=== PATIENT | female | born 1960 | race Caucasian/White ===

== ENCOUNTER → 2017-01-23 | Outpatient (CLI) | payer OTHER | LOC: CIMAGING 10:06 | PROVIDERS: ATTEND Family Medicine | DX: R22.2 Localized swelling, mass and lump, trunk (principal) | CPT/HCPCS: 71020-PO ==

== ENCOUNTER → 2018-04-18 | Outpatient (CLI) | payer BC | LOC: FCPNEURO 21:00 | PROVIDERS: ATTEND Student in an Organized Health Care Education/Training Program | DX: G47.33 Obstructive sleep apnea (adult) (pediatric) (principal) ==

== ENCOUNTER 2018-06-28 13:57 | Inpatient (IN) | payer BC ==
[2018-06-28] MEDS ORDERED: NS 500 ML IV ONE (14:13)
--- NOTE | 2018-06-28 14:18 | EDPHY ---
H & P Time Seen by Provider: 06/28/18 14:14 HPI/ROS: CHIEF COMPLAINT: Hypoxia Limitations: post-operative sedation HISTORY OF PRESENT ILLNESS: 57-year-old female presents after left tib-fib surgery with hypoxia. Surgical repair of left tib-fib fracture this afternoon. Immediately after the operation was completed and the tourniquet was let down , she became acutely hypoxic at the surgery center, with an O2 sat in the 80s. Hypoxia has persisted in the postoperative period. EMS called for transport. Pt still groggy from surgery and only c/o dizziness. She denies shortness of breath or chest pain. No prior history of VTE or prior cardiopulmonary disease. REVIEW OF SYSTEMS: complete 10 point ROS reviewed and is negative except for the noted elements in the HPI (completed later in ED course) Source: Patient, Family - Social History Alcohol Use: Sober Drug Use: None Additional Social History: - Physical Exam Exam: General Appearance: drowsy, pleasant Eyes: Pupils equal and round, no conjunctival pallor or injection, horizontal nystagmus with rightward gaze ENT, Mouth: Mucous membranes moist Neck: Normal inspection Respiratory: normal RR, lungs are clear to auscultation Cardiovascular: Regular rate and rhythm Gastrointestinal: Abdomen is soft and nontender Neurological: drowsy, oriented x 3, nonfocal exam Skin: Warm and dry Extremities: Left lower extremity in a splint Psychiatric: Flat affect Constitutional: Initial Vital Signs O2 Sat (%) 95 06/28/18 14:13 O2 Delivery Mode Room Air O2 (L/minute) 4 Allergies/Adverse Reactions: Sulfa (Sulfonamide Antibiotics) Allergy (Verified 06/28/18 14:17) Home Medications: Medication Instructions Recorded Zolpidem Tartrate [Ambien] 10 mg PO HS PRN 06/28/18 morphINE IR [morphINE IR 15 mg (*)] 7.5 - 15 mg PO BID PRN 06/28/18 Apixaban [Eliquis] 10 mg PO BID #72 tab 06/29/18 Medical Decision Making - Diagnostics EKG Interpretation: EKG interpreted by me reveals NSR, rate 84, PVC, possible LAE, no ST/T changes. Interpretation: borderline EKG Imaging Results: CTA chest read by the radiologist: acute bilateral PE, see full report Imaging: Discussed imaging studies w/ patient assessment coordinator Radiologist ED Course/Re-evaluation: This patient presents with hypoxia immediately after left tib-fib repair. Concerning for thromboembolism. stat EKG reveals no ischemic changes and no dysrhythmia. CTA chest ordered to r/o PE and reveals acute bilateral segmental/ lobar PE's. Options d/w with pt and , advise Heparin IV. Pt is alert and appears to be a competent decision-maker. Given urgent nature of need for anticoagulation, also involved in decision-making for pt. Pt and clearly understand the risks and benefits of heparin in the immediate post-operative period (including hemorrhage in the surgical area, compartment syndrome, limb compromise, other hemorrhage) and wish to proceed. Heparin per weight based protocol initiated. d/w Dr. Bryan, who saw pt in ED. Consulted the hospitalist service for admission. Pt stable throughout her ED stay, gradually more alert and back to baseline mental status. Toes pink, good cap refill throughout. Differential Diagnosis: includes though not limited to PTX, ACS, pulm edema, pneumonia, oversedation - Data Points Laboratory Results: Laboratory Results 06/28/18 14:42 06/28/18 14:42 Medications Given: Acetaminophen (Tylenol) 1,000 mg PO Q8H [facility] Stop: 12/25/18 17:14 Last Admin: 06/29/18 11:31 Dose: 1,000 mg Hydrocodone Bitart/Acetaminophen ([place] 5/325) 1 - 2 tab PO Q3HRS PRN PRN Reason: Pain, Moderate Able to Take PO Stop: 07/09/18 08:38 Last Admin: 06/29/18 15:54 Dose: 1 tab Apixaban (Eliquis) 10 mg PO BID [facility] Stop: 12/26/18 09:29 Last Admin: 06/29/18 09:48 Dose: 10 mg Oxycodone HCl (Oxycodone Ir) 5 - 10 mg PO Q3HRS PRN PRN Reason: Pain, Severe Able to Take PO Stop: 07/09/18 08:38 Last Admin: 06/29/18 16:51 Dose: 10 mg Discontinued Medications Acetaminophen (Tylenol) 1,000 mg PO Q8H [facility] Stop: 12/25/18 17:14 Last Admin: 06/28/18 19:31 Dose: Not Given Heparin Sodium (Porcine) (Heparin Injection) 0 unit IVP EDNOW ONE Stop: 06/28/18 15:44 Last Admin: 06/28/18 16:38 Dose: 6,800 units Sodium Chloride (Ns) 500 mls @ 1,000 mls/hr IV EDNOW ONE PRN Reason: Protocol Stop: 06/28/18 14:42 Last Admin: 06/28/18 14:21 Dose: 500 mls Heparin Sodium (Porcine) (Heparin 50 Units/Ml (Premix)) 500 mls @ 0 mls/hr IV EDNOW ONE; Per Protocol PRN Reason: Protocol Stop: 06/28/18 15:44 Last Admin: 06/28/18 19:30 Dose: Not Given Heparin Sodium (Porcine) (Heparin 50 Units/Ml (Premix)) 500 mls @ 0 mls/hr IV CONT [facility]; Per Protocol PRN Reason: Protocol Stop: 12/25/18 15:59 Last Admin: 06/29/18 08:41 Dose: 500 mls Oxycodone HCl (Oxycodone Ir) 5 - 10 mg PO Q3HRS PRN PRN Reason: Pain, Severe Able to Take PO Stop: 07/08/18 17:15 Last Admin: 06/29/18 06:05 Dose: 5 mg Point of Care Test Results: Chemistry 06/28/18 06/28/18 14:49 14:48 POC Sodium 142 mEq/L mEq/L (135-145) POC Potassium 4.0 mEq/L mEq/L (3.3-5.0) POC Chloride 106 mEq/L mEq/L (97-110) POC Total CO2 23 mEq/L mEq/L (22-31) POC BUN 12 mg/dL mg/dL (7-23) POC Creatinine 0.7 mg/dL mg/dL (0.6-1.0) POC Glucose 125 mg/dL H mg/dL (70-100) POC Troponin I 0.00 ng/mL ng/mL (0.00-0.08) ISTAT H&H 06/28/18 14:49 POC Hgb 14.6 gm/dL gm/dL (12.6-16.3) POC Hct 43 % % (38-47) Departure - Departure Disposition: [facility] Inpatient Acute Clinical Impression: Pulmonary emboli Qualifiers: Pulmonary embolism type: unspecified Chronicity: acute Acute cor pulmonale presence: without acute cor pulmonale Qualified Code(s): I26.99 - Other pulmonary embolism without acute cor pulmonale Condition: Good
[2018-06-28] MEDS ORDERED: IOHEXOL 350mgI/ML (OMNIPAQUE) 150 ML BTL IV ONE (14:47)
[2018-06-28 14:53] LABS: PLATELET COUNT 249 10^3/uL (150-400)
[2018-06-28] MEDS ORDERED: HEPARIN/DEXTROSE 500 ML IV ONE (15:43)
[2018-06-28] MEDS ORDERED: HEPARIN 10,000 UNIT/10 ML MDV (1,000 UNIT/ML) IVP ONE (15:43)
[2018-06-28] MEDS ORDERED: ONDANSETRON DISINTEGRATING 4 MG TAB PO PRN (15:54)
[2018-06-28] MEDS ORDERED: ONDANSETRON 4 MG/2 ML VIAL IVP PRN (15:54)
[2018-06-28] MEDS ORDERED: ACETAMINOPHEN 325 MG TAB PO PRN (15:54)
[2018-06-28] MEDS ORDERED: HEPARIN 10,000 UNIT/10 ML MDV (1,000 UNIT/ML) IVP PRN (15:56)
[2018-06-28 16:16] LABS: INR 0.99 (0.83-1.16); PROTIME(PATIENT) 13.3 SEC (12.0-15.0)
[2018-06-28] MEDS: HEPARIN/DEXTROSE 500 ML IV SCH (16:39)
--- NOTE | 2018-06-28 16:44 | PDGENHP ---
History and Physical - Chief Complaint Hypoxia - History of Present Illness HPI: This is a 57 y/o female with history of depression, anxiety, and PTSD presenting to the emergency room s/p left tib-fib surgery by Dr. Bonilla Bryan d /t hypoxia. Report was gathered by discussing case with ER admitting physician Dr. Tabitha Gudino as pt recalls waking up in an ambulance today. Today and after 30 minutes of having her left tib-fib repair, the tourniquet was removed and immediately she became hypoxic at the surgery center with oxygen saturation in the 80s. The pt reports last , she attended the [email or web address] and afterwards, she slipped on ice and broke her tib-fib. It was a closed fracture. She went to [facility] where she was splinted and given Morphine. She was sedentary since then and used crutches to get around. She has never had blood clots before, no heart issues. Endorses lightheadedness while upright and reports "feeling off," and more fatigued than usual starting yesterday sometime. Denies chest pains, palpitations, nausea, vomiting, fevers , chills. Chest CTA reveal bilateral pulmonary embolisms. She is being admitting for further treatment and monitoring. Past Medical History: Depression, anxiety, PTSD Past Surgical History: Tonsillectomy Social: Lives in [place]. Has a partner named Ciro. Retired. Denies tobacco or illicit drug use. Occasionally drinks alcohol ~1 wine/week. History Information - Allergies/Home Medication List Allergies/Adverse Reactions: Sulfa (Sulfonamide Antibiotics) Allergy (Verified 06/28/18 14:17) Home Medications: Zolpidem Tartrate [Ambien] 10 mg PO HS PRN 06/28/18 [Last Taken Unknown] morphINE IR [morphINE IR 15 mg (*)] 7.5 - 15 mg PO BID PRN 06/28/18 [Last Taken Unknown] I have personally reviewed and updated: family history, medical history, social history, surgical history Past Medical History: See HPI list - Surgical History Additional surgical history: See HPI list - Family History Positive for: diabetes type II, CAD, hypertension - Social History Smoking Status: Never smoked Alcohol Use: Occasionally Drug Use: None Review of Systems Review of Systems: ROS: 10pt was reviewed & negative except for what was stated in HPI & below Constitutional: Reports: malaise, recent injury EENMT: Reports: no symptoms Cardiac: Reports: lightheadedness Gastrointestinal: Reports: no symptoms Genitourinary: Reports: no symptoms Muscolosketal: Reports: no symptoms Skin: Reports: no symptoms Neurological: Reports: no symptoms Hematologic/Lymphatic: Reports: no symptoms Immunologic/Allergy: Reports: other (See allergy list) Physical Exam Physical Exam: Lab data and imaging were reviewed. Case discussed with admitting physician, Dr. Emery Bahena BNP: 66 Trop: 0.00 Chest CTA: bilateral lobar to segmental acute pulmonary emboli. Possible strands of embolus within the main right and left pulmonary arteries. The main pulmonary artery is slightly dilated and mild dilatation of the right ventricle. Left lower lobe nodule measuring 0.2 cm. EKG: SR, suspect left ventricle enlargement Temp Pulse Resp BP Pulse Ox 37 C 99 20 165/105 H 91 L 06/28/18 16:00 06/28/18 16:00 06/28/18 16:00 06/28/18 16:00 06/28/18 16:00 Constitutional: no apparent distress, appears nourished, obese Eyes: PERRL, anicteric sclera, EOMI Ears, Nose, Mouth, Throat: moist mucous membranes, hearing normal, ears appear normal, no oral mucosal ulcers Cardiovascular: regular rate and rhythym, no murmur, rub, or gallop, tachycardia , edema Peripheral Pulses: 0: dorsalis-pedis (L) (Deferred d/t surgical splint KERWIN. Popliteal pulse 2+), 2+: dorsalis-pedis (R) (Radial 2+) Respiratory: reduced air movement (Throughout lung arias) Gastrointestinal: normoactive bowel sounds, soft, non-tender abdomen, no palpable masses Genitourinary: no bladder fullness, no bladder tenderness Skin: warm, normal color, no rashes or abrasions, no fluctuance, no induration, No mottled Musculoskeletal: full muscle strength, no muscle tenderness, normal joint ROM, no joint effusions Neurologic: AAOx3, sensation intact bilaterally, CN II-XII Intact Psychiatric: not encephalopathic, thought process linear, flat affect Lymph, Heme, Immunologic: no cervical LAD, no supraclavicular LAD Lab Data & Imaging Review 06/28/18 14:42 06/28/18 14:42 WBC 13.16 10^3/uL (3.80-9.50) H 06/28/18 14:42 RBC 4.71 10^6/uL (4.18-5.33) 06/28/18 14:42 Hgb 14.1 g/dL (12.6-16.3) 06/28/18 14:42 POC Hgb 14.6 gm/dL (12.6-16.3) 06/28/18 14:49 Hct 43.2 % (38.0-47.0) 06/28/18 14:42 POC Hct 43 % (38-47) 06/28/18 14:49 MCV 91.7 fL (81.5-99.8) 06/28/18 14:42 MCH 29.9 pg (27.9-34.1) 06/28/18 14:42 MCHC 32.6 g/dL (32.4-36.7) 06/28/18 14:42 RDW 13.2 % (11.5-15.2) 06/28/18 14:42 Plt Count 249 10^3/uL (150-400) 06/28/18 14:42 MPV 9.6 fL (8.7-11.7) 06/28/18 14:42 Neut % (Auto) 91.1 % (39.3-74.2) H 06/28/18 14:42 Lymph % (Auto) 5.7 % (15.0-45.0) L 06/28/18 14:42 Daniels % (Auto) 2.1 % (4.5-13.0) L 06/28/18 14:42 Eos % (Auto) 0.3 % (0.6-7.6) L 06/28/18 14:42 Baso % (Auto) 0.3 % (0.3-1.7) 06/28/18 14:42 Nucleat RBC Rel Count 0.0 % (0.0-0.2) 06/28/18 14:42 Absolute Neuts (auto) 11.98 10^3/uL (1.70-6.50) H 06/28/18 14:42 Absolute Lymphs (auto) 0.75 10^3/uL (1.00-3.00) L 06/28/18 14:42 Absolute Monos (auto) 0.28 10^3/uL (0.30-0.80) L 06/28/18 14:42 Absolute Eos (auto) 0.04 10^3/uL (0.03-0.40) 06/28/18 14:42 Absolute Basos (auto) 0.04 10^3/uL (0.02-0.10) 06/28/18 14:42 Absolute Nucleated RBC 0.00 10^3/uL (0-0.01) 06/28/18 14:42 Immature Gran % 0.5 % (0.0-1.1) 06/28/18 14:42 Immature Gran # 0.07 10^3/uL (0.00-0.10) 06/28/18 14:42 PT 13.3 SEC (12.0-15.0) 06/28/18 15:57 INR 0.99 (0.83-1.16) 06/28/18 15:57 APTT 27.5 SEC (23.0-38.0) 06/28/18 15:57 POC Sodium 142 mEq/L (135-145) 06/28/18 14:49 Sodium 136 mEq/L (135-145) 06/28/18 14:42 POC Potassium 4.0 mEq/L (3.3-5.0) 06/28/18 14:49 Potassium 4.3 mEq/L (3.5-5.2) 06/28/18 14:42 POC Chloride 106 mEq/L (97-110) 06/28/18 14:49 Chloride 108 mEq/L (97-110) 06/28/18 14:42 Carbon Dioxide 22 mEq/l (22-31) 06/28/18 14:42 POC Total CO2 23 mEq/L (22-31) 06/28/18 14:49 Anion Gap 6 mEq/L (6-14) 06/28/18 14:42 POC BUN 12 mg/dL (7-23) 06/28/18 14:49 BUN 14 mg/dL (7-23) 06/28/18 14:42 Creatinine 0.7 mg/dL (0.6-1.0) 06/28/18 14:42 POC Creatinine 0.7 mg/dL (0.6-1.0) 06/28/18 14:49 Estimated GFR > 60 06/28/18 14:42 Glucose 120 mg/dL (70-100) H 06/28/18 14:42 POC Glucose 125 mg/dL (70-100) H 06/28/18 14:49 Calcium 8.7 mg/dL (8.5-10.4) 06/28/18 14:42 POC Troponin I 0.00 ng/mL (0.00-0.08) 06/28/18 14:48 NT-Pro-B Natriuret Pep 66 pg/mL (0-125) 06/28/18 14:42 Assessment & Plan Plan: This is a 57 y/o female with history of anxiety, PTSD, and depression s/p left tib-fib repair by Dr. Bonilla Bryan who arrived to the ED shortly after completion of her surgery d/t hypoxia sating in the 80s. Upon imaging, she has bilateral PEs. #Bilateral PEs: Symptomatic with tachy, lightheadedness and hypoxic on RA. Confirmed with chest CTA. -Dr. Tabitha Gudino has a call out to Dr. Bryan to inform him of the pt's situation. Risks vs benefits were weighed heavily considering she is s/p surgery; initiating heparin most likely will cause swelling and hematoma to surgical leg however if heparin is not administered, she is at risk for more blood clots and/or respiratory decline. -Heparin bolus + drip initiated in ED; will continue heparin drip on floor -Cycle H&H Q8H x 4 to evaluate LLE possible bleed -Cont tele/pulse ox monitoring -ECHO complete w/bubble pending to evaluate possible right heart strain; BNP 66. Trop negative 0.00 -Will not perform BLE doppler US; most likely origin is from acute LLE injury onset last + immobility since that time -Transition heparin drip off tomorrow morning and begin AC -Noted left lower lobe nodule. She will need to f/u outpatient in 12 months for repeat imaging. #LLE POD #0 -Pain management PO/IVP PRN -Elevate -NWB LLE unless directed otherwise by Dr. Bryan -PT/OT #Obesity #Insomnia: on Ambien @ HS Diet: Regular Code: Full VTE ppx: Heparin drip Dispo: Admit to obs
[2018-06-28] MEDS ORDERED: HYDROmorphONE/DILAUDID 1 MG/ML INJ IVP PRN (17:16)
[2018-06-28] MEDS ORDERED: ACETAMINOPHEN 325 MG TAB PO SCH (17:16)
[2018-06-28] MEDS ORDERED: ZOLPIDEM TARTRATE 5 MG TAB PO PRN (17:17)
--- NOTE | 2018-06-28 18:32 | HOSPPROG ---
Hospitalist Progress Note Assessment/Plan: I have personally seen and evaluated Ivory Khanna. I agree with the assessment and plan as outlined by Jackeline ALEGRIA, in a separate note. Objective: Vital Signs Temp Pulse Resp BP Pulse Ox 36.7 C 93 16 157/99 H 90 L 06/28/18 17:39 06/28/18 17:39 06/28/18 17:39 06/28/18 17:39 06/28/18 17:39 06/27/18 06/28/18 06/29/18 05:59 05:59 05:59 Output Total 900 Balance -900 PT 13.3 SEC (12.0-15.0) 06/28/18 15:57 INR 0.99 (0.83-1.16) 06/28/18 15:57 ICD10 Worksheet Patient Problems: Problems Problem Status Onset Pulmonary emboli Acute - ICD10 Problem Qualifiers (1) Pulmonary emboli Qualifiers: Pulmonary embolism type: unspecified Chronicity: acute
[2018-06-28] MEDS: ACETAMINOPHEN 500 MG TAB PO SCH (18:59)
--- NOTE | 2018-06-28 19:48 | CPEKG ---
Test Reason : OPEN Blood Pressure : / mmHG Vent. Rate : 083 BPM Atrial Rate : 084 BPM P-R Int : 162 ms QRS Dur : 093 ms QT Int : 385 ms P-R-T Axes : 066 056 023 degrees QTc Int : 453 ms Sinus rhythm Ventricular premature complex Probable left atrial enlargement Confirmed by Janeth Gudino ([id number]) on 06/28/2018 7:48:17 PM Referred By: Janeth Gudino Confirmed By:Janeth Gudino
[2018-06-29] MEDS: oxyCODONE IR 5 MG TAB PO PRN ×6 (04:27→23:38)
[2018-06-29] MEDS: ACETAMINOPHEN 500 MG TAB PO SCH ×3 (04:28→20:27)
--- NOTE | 2018-06-29 05:56 | SOAPPROG ---
SOAP Progress Note Assessment/Plan: Assessment: S/P ORIF Tib/fib PE AO x3 Breathing comfortably yoon po mild sensation toes splint intact mild sang D/C Able to flex/ext toes good cap refill Plan: Anticoag per hospitalist - mgmt appreciated Non WB L LE OK for ortho D/C when medically stable 06/29/18 05:54 Objective: Vital Signs Temp Pulse Resp BP Pulse Ox 36.8 C 75 18 127/82 H 96 06/29/18 04:00 06/29/18 04:00 06/29/18 04:00 06/29/18 04:00 06/29/18 04:00 Laboratory Results 06/28/18 22:45 06/27/18 06/28/18 06/29/18 05:59 05:59 05:59 Intake Total 100 Output Total 1575 Balance -1475 PT 13.3 SEC (12.0-15.0) 06/28/18 15:57 INR 0.99 (0.83-1.16) 06/28/18 15:57 ICD10 Worksheet Patient Problems: Problems Problem Status Onset Pulmonary emboli Acute
[2018-06-29] MEDS ORDERED: HYDROCODONE/APAP 5/325 TAB PO PRN (08:39)
[2018-06-29] MEDS ORDERED: HYDROmorphONE/DILAUDID 1 MG/ML INJ IVP PRN (08:39)
[2018-06-29] MEDS ORDERED: ACETAMINOPHEN 325 MG TAB PO PRN (08:39)
[2018-06-29] MEDS: HEPARIN/DEXTROSE 500 ML IV SCH (08:41)
--- NOTE | 2018-06-29 09:29 | HOSPPROG ---
Hospitalist Progress Note Assessment/Plan: # acute PE - provoked around LE fracture and surgery - stop heparin gtt, start eliquis today - 3 month duration of AC # hypoxia d/t PE - still on O2, follow with tx of PE # pulm nodule - needs outpatient f/u, [address] # recent tib/fib fracture s/p ORIF POD#1 - NWB - cont PT Subjective: Pain was severe this morning, now improved after oxycodone; she is waiting to ambulate with physical therapy Objective: Vital Signs Temp Pulse Resp BP Pulse Ox 37.1 C 67 18 123/78 H 96 06/29/18 07:45 06/29/18 07:45 06/29/18 07:45 06/29/18 07:45 06/29/18 07:45 Laboratory Results 06/29/18 04:44 06/29/18 04:44 06/28/18 06/29/18 06/30/18 05:59 05:59 05:59 Intake Total 100 Output Total 1575 Balance -1475 PT 13.3 SEC (12.0-15.0) 06/28/18 15:57 INR 0.99 (0.83-1.16) 06/28/18 15:[address] angiogram reviewed - Physical Exam Constitutional: no apparent distress, appears nourished Cardiovascular: regular rate and rhythym, no murmur, rub, or gallop Respiratory: no respiratory distress, no rales or rhonchi, clear to auscultation Gastrointestinal: normoactive bowel sounds, soft, non-tender abdomen, no palpable masses Musculoskeletal: other (Left leg in surgical bandage) ICD10 Worksheet Patient Problems: Problems Problem Status Onset Pulmonary emboli Acute
[2018-06-29] MEDS: APIXABAN 5 MG TAB PO SCH ×2 (09:48→20:28)
--- NOTE | 2018-06-29 09:58 | PDMN ---
Medical Necessity Medical necessity: Change to inpt as of 06/29/18 @ 09:24, meets inpt criteria per MD order and MCG M-290, Pulmonary Embolism, A-4 days. 57 y/o presented to ER s/p L tib-fib surgery w/hypoxia, O2 sats in 80's, admitted w/bilateral acute PE's- confirmed on imaging. Upgraded to inpt as pt is high risk on anticoagulation due to recent surgery (POD#1), still requiring supplemental O2 to keep sats>90% (currently on 4 L O2), and management of severe pain. Est LOS> 2MN for ongoing management of acute PE's in post-op pt.
--- NOTE | 2018-06-29 10:13 | ASMTCMCOM ---
CM Note CM Note Notes: Spoke with MD, pt will dc home on Eliquis. [facility] and she is covered at 100%. Date Signed: 06/29/2018 10:12 AM Electronically Signed By:Kathrine Hagen RN
[2018-06-29] MEDS ORDERED: POLYETHYLENE GLYCOL 3350 17 GM PKT PO PRN (12:03)
[2018-06-29] MEDS ORDERED: MAGNESIUM HYDROXIDE 30 ML UDCUP PO PRN (12:03)
[2018-06-29] MEDS ORDERED: BISACODYL 10 MG SUPP PR PRN (12:03)
[2018-06-29] MEDS ORDERED: LACTULOSE 20 GM/30 ML UDCUP PO PRN (12:03)
--- NOTE | 2018-06-29 15:42 | ECHO ---
[email or web address] [address] [address] Main: [phone] Fax: [email or web address] Echocardiogram Name: EARLENE HUBER MR#: [id number] Study Date: 06/29/2018 Study Time: 01:33 PM Date of : 1960 Age: 57 year(s) Height: 167.6 cm (66 in.) Weight: 85.28 kg (188 lb.) BSA: 1.95 m2 Gender: Female Examination: Echo with Agitated Saline Indication: hypoxemia, PE Image Quality: Adequate Contrast: Requested by: Kaci Michaels BP: / Heart Rate: Rhythm: Indication: hypoxemia, PE Procedure Staff Department Specialist: Bárbara Prescott RDCS Reading Physician: Sonu Hansen MD Requesting Provider: Conclusions: Normal global systolic LV function. EF is 61 %. Mild mitral valve regurgitation is present. Trivial aortic valve regurgitation. Mild tricuspid regurgitation is present. Right ventricular systolic pressure measures 39mmHg. Measurements: Chambers Valvular Assessment AV/MV Valvular Assessment TV/PV Normal Normal Normal Name Value Range Name Value Range Name Value Range Ao Ayse (2D): 2.9 cm (1.4 cm-2.6 AV Vmax: 1.50 m/s (1 m/s-1.7 TR Vmax: 2.90 mm/s ( - ) cm) m/s) TR PGmax: 34 mmHg ( - ) IVSd (2D): 1.0 cm (0.6 cm-1.1 AV maxP mmHg ( - ) syst. PAP: 39 mmHg ( - ) cm) AV meanP mmHg ( - ) PV Vmax: 0.91 m/s (0.6 m/s-0.9 LVDd (2D): 4.4 cm (3.9 cm-5.3 DEEJAY (VTI): 2.1 cm ( - ) m/s) cm) MV E Vmax: 0.63 m/s ( - ) PV PGmax: 3 mmHg ( - ) LVDs (2D): 3.0 cm (2.1 cm-4 MV A Vmax: 0.58 m/s ( - ) cm) MV E/A: 1.09 ( - ) LVPWd (2D): 1.0 cm ( - ) MV PHT: 0.065 s ( - ) LVOTd 2.0 cm 2.0 cm mm MVA (PHT): 3.4 s ( - ) LVEF (BP): 61 % (>=55 %) RVDd(2D): 3.8 cm (1.9 cm-3.8 cmmm) Continued Measurements: Chambers Valvular Assessment AV/MV Valvular Assessment TV/PV Name Value Name Value Name Value LADs: 3.6 cm MV DecTime: 215 m/s CVP (est.): 5 mmHg Patient: EARLENE HUBER Study Date: 06/29/2018 Page 1 of 2 01:33 PM LADs Lon.0 cm MV E' Septal: 0.08 m/s LA Area: 20.3 cm2 MV E/E' Septal: 8.10 LA Volume: 62 ml MV E/E' Lateral: 6.20 LA Volume Index: 31.8 ml/m2 RA Area: 20.6 cm2 Additional Vessels Name Value Ao Ascendin.4 cm Findings: Left Ventricle: Normal size left ventricle. No LV hypertrophy. Normal global systolic LV function. EF is 61 %. No regional wall motion abnormality. Normal diastolic LV function. Right Ventricle: Upper normal size right ventricle. Normal RV function. Left Atrium: The left atrium is normal in size. Right Atrium: The right atrium is normal in size. Mitral Valve: The mitral valve is normal in appearance and function. Mild mitral valve regurgitation is present. No mitral stenosis is present. Aortic Valve: The aortic valve is tri-leaflet. Trivial aortic valve regurgitation. No aortic valve stenosis is present. Tricuspid Valve: The tricuspid valve is normal in appearance and function. Mild tricuspid regurgitation is present. The pulmonary artery pressure is mildly increased. Right ventricular systolic pressure measures 39mmHg. Pulmonic Valve: The pulmonic valve is normal in appearance and function. Mild pulmonic valve regurgitation is noted. Aorta: The aorta is normal. Normal size aortic root measuring 2.9 cm. Normal size ascending aorta measuring 3.4 cm. IVC: The IVC is normal sized. Pericardium: No pericardial effusion. (No Signature Object) Patient: EARLENE HUBER Study Date: 06/29/2018 Page 2 of 2 01:33 PM [id number]
[2018-06-29] MEDS: SENNOSIDES/DOCUSATE SODIUM TAB PO SCH (20:28)
[2018-06-30] MEDS: ACETAMINOPHEN 500 MG TAB PO SCH ×3 (03:07→19:33)
[2018-06-30] MEDS: oxyCODONE IR 5 MG TAB PO PRN ×2 (03:07→06:20)
--- NOTE | 2018-06-30 06:07 | SOAPPROG ---
SOAP Progress Note Assessment/Plan: Assessment: S/P ORIF Tib/fib PE AO x3 Breathing comfortably yoon po mild sensation toes splint intact mild sang D/C Able to flex/ext toes good cap refill Plan: Anticoag per hospitalist - mgmt appreciated Non WB L LE OK for ortho D/C when medically stable 06/29/18 05:54 06/30/18 06:05 Pain in leg increased (nerve block wore off) Limited ambulation Splint intact. No new D/C Toes with good cap refill + sensation PF/DF toes 1-5 OOB/PT Anticoag per Hospitalist Objective: Vital Signs Temp Pulse Resp BP Pulse Ox 37.2 C 82 16 144/87 H 94 06/30/18 03:08 06/30/18 03:08 06/30/18 03:08 06/30/18 03:08 06/30/18 03:08 Laboratory Results 06/30/18 03:30 06/29/18 04:44 06/29/18 06/30/18 07/01/18 05:59 05:59 05:59 Intake Total 100 Output Total 1575 1000 Balance -1475 -1000 PT 13.3 SEC (12.0-15.0) 06/28/18 15:57 INR 0.99 (0.83-1.16) 06/28/18 15:57 ICD10 Worksheet Patient Problems: Problems Problem Status Onset Pulmonary emboli Acute
[2018-06-30] MEDS: SENNOSIDES/DOCUSATE SODIUM TAB PO SCH ×2 (09:07→20:02)
[2018-06-30] MEDS: APIXABAN 5 MG TAB PO SCH ×2 (09:07→20:02)
[2018-06-30] MEDS ORDERED: traMADol 50 MG TAB PO PRN (10:33)
--- NOTE | 2018-06-30 10:50 | HOSPPROG ---
Hospitalist Progress Note Assessment/Plan: # acute PE - provoked around LE fracture and surgery - cont eliquis 10 bid - 3 month duration of AC # hypoxia d/t PE - still on O2, follow with tx of PE # pulm nodule - needs outpatient f/u, [address] # recent tib/fib fracture s/p ORIF POD#2 - NWB - cont PT - pain control an issue; change oxy to dilaudid, add tramadol Subjective: tearful; ongoing pain; feels very poorly when she takes oxy; seen with her partner Objective: Vital Signs Temp Pulse Resp BP Pulse Ox 37.1 C 65 12 124/74 H 93 06/30/18 07:21 06/30/18 07:21 06/30/18 07:21 06/30/18 07:21 06/30/18 07:21 Laboratory Results 06/30/18 03:30 06/29/18 04:44 06/29/18 06/30/18 07/01/18 05:59 05:59 05:59 Intake Total 100 Output Total 1575 1000 Balance -1475 -1000 PT 13.3 SEC (12.0-15.0) 06/28/18 15:57 INR 0.99 (0.83-1.16) 06/28/18 15:57 - Time Spent With Patient Time Spent with Patient: greater than 35 minutes Time Spent with Patient: Greater than 35 minutes spent on this patients care, greater than 50% of time spent counseling, educating, and coordinating care regarding the above mentioned plan. - Physical Exam Constitutional: uncomfortable, other (tearful) ICD10 Worksheet Patient Problems: Problems Problem Status Onset Pulmonary emboli Acute
[2018-06-30] MEDS: HYDROmorphONE/DILAUDID 2 MG TAB PO PRN ×3 (10:52→23:34)
[2018-06-30] MEDS ORDERED: HYDROCORTISONE 2.5% 30 GM CRTUBE TP PRN (18:04)
[2018-07-01] MEDS: ACETAMINOPHEN 500 MG TAB PO SCH ×2 (03:36→12:07)
[2018-07-01] MEDS: HYDROmorphONE/DILAUDID 2 MG TAB PO PRN ×3 (03:37→12:07)
[2018-07-01] MEDS: APIXABAN 5 MG TAB PO SCH (08:20)
[2018-07-01] MEDS: SENNOSIDES/DOCUSATE SODIUM TAB PO SCH (08:20)
[2018-07-01 11:57] VITALS: BP 117/73
--- NOTE | 2018-07-01 15:02 | GDS ---
[f rep st] DISCHARGE SUMMARY ALL DIAGNOSES: 1. Acute pulmonary embolus, provoked. 2. Hypoxia due to pulmonary embolus, resolved. 3. Pulmonary nodule needing outpatient followup. 4. Recent tibia-fibula fracture, status post open reduction, internal fixation by Dr. Bryan. HOSPITAL COURSE: This is a 57-year-old female who fell and broke her tib-fib. She went in for an ou tpatient ORIF by Dr. Bryan. When the tourniquet was removed, she was noted to be significantly hypo xic. She was thus brought to the hospital. CT angiogram confirmed pulmonary embolus. She has been treated with anticoagulation with good result. She has been hemodynamically stable. She was initial ly hypoxic, however, is not hypoxic on the day of discharge. When she ambulates with crutches, she m aintains her saturations at 92%. I do not think she needs to be discharged with oxygen. She was not ably just given a CPAP which she will continue to use at night. I have given her a prescription for Eliquis. She should follow up with her primary care physician fo r ongoing management of this. I think 3 months of anticoagulation should be appropriate for this pro voked DVT/PE. She is currently nonweightbearing for her fracture repair. She will follow up with Dr. Bryan for is. BILLING: I spent more than 30 minutes on the day of discharge coordinating care. /[id number]/MODL
== END 2018-07-01 14:36 | disposition home or self-care (01) | DRG 301 ==
LOC: EDUNIT# → F3E 17:21
PROVIDERS: ADMIT Internal Medicine; ATTEND Student in an Organized Health Care Education/Training Program
DX: T81.718A Complication of other artery following a procedure, not elsewhere classified, initial encounter (principal); I26.99 Other pulmonary embolism without acute cor pulmonale; R91.1 Solitary pulmonary nodule; S82.202D Unspecified fracture of shaft of left tibia, subsequent encounter for closed fracture with routine healing; S82.402D Unspecified fracture of shaft of left fibula, subsequent encounter for closed fracture with routine healing; W00.0XXD Fall on same level due to ice and snow, subsequent encounter; F41.8 Other specified anxiety disorders; G47.00 Insomnia, unspecified; F43.10 Post-traumatic stress disorder, unspecified; E66.9 Obesity, unspecified; Z68.30 Body mass index [BMI] 30.0-30.9, adult
CPT/HCPCS: 82435-PO; 82565-PO; 82947-PO; 84132-PO; 84295-PO; 84484-ER; 84520-PO; 85014-ER; 85520-90; 96374; 97116-GP; 97161-GP; 97165-GO; 97535-GO; J1170; J1644; Q9967

== ENCOUNTER 2018-10-18 11:50 | Observation (INO) | payer BC | END 2018-10-19 10:21 | disposition home or self-care (01) | LOC: FSGY 11:50 → F3N 17:32 ==

== ENCOUNTER → 2018-11-14 | Outpatient (CLI) | payer BC | LOC: FIMAGING 09:49 ==